=== PATIENT | female | born 1960 | race Caucasian/White ===

== ENCOUNTER → 2016-06-23 | Outpatient (CLI) | payer BC ==
--- NOTE | 2016-06-23 15:01 | MAMMOGRAPHY REPORT ---
BILATERAL DIGITAL DIAGNOSTIC MAMMOGRAM TOMOSYNTHESIS WITH CAD AND TARGETED RIGHT ULTRASOUND: 06/23/19 CLINICAL HISTORY: 55 year old woman presents for annual bilateral mammography and second close follo w-up of a probably benign mass in the medial anterior right breast. TECHNIQUE: Bilateral tomosynthesis in addition to standard 2D mammography was performed. Current angelo dy was also evaluated with a Computer Aided Detection (CAD) system. COMPARISON: Comparison is made to exams dated: 12/25/2015 ultrasound, 12/25/2015 mammogram, 06/25/2015 ultrasound, 06/25/2015 mammogram, and 06/21/2015 mammogram - [facility]. BREAST COMPOSITION: There are scattered areas of fibroglandular density in both breasts. FINDINGS: There is persistence of a well circumscribed lobulated 6.7 x 3.5 mm mass in the medial an terior right breast, best seen on the CC view (tomosynthesis slice 18/73). No associated architectu ral distortion or clustered microcalcification. No other obvious new mass, architectural distortion or suspicious microcalcifications are identified bilaterally. Targeted ultrasound was performed in the 4:00 right breast to reevaluate the probable complicated cy st seen on prior ultrasounds. There is a lobulated mixed echogenicity mass with numerous internal e choes, that appears slightly larger when comparing to the prior ultrasounds, although accurate measu rements are difficult to obtain given the elongated nature of the mass. It measures approximately 3 .0 x 4.3 x 3.9 mm, but this is likely under measured. There is also a newly visualized adjacent ova l hypoechoic solid-appearing mass in the 4:00 right breast, 1 cm from the nipple, measuring 3.0 x 2. 2 x 4.1 mm. Given the interval visual increase in size of the mixed solid and cystic mass in the ne wly visualized oval mass in the 4:00 right breast, 1 cm from the nipple, definitive characterization with tissue sampling is recommended of both masses, although they could represent complicated cysts or papillomas. IMPRESSION: ACR BI-RADS CATEGORY 4B: INTERMEDIATE SUSPICION FOR MALIGNANCY, TARGETED ULTRASOUND ACR BI-RADS CATEGORY 4B: INTERMEDIATE SUSPICION FOR MALIGNANCY 1. Ultrasound guided core needle biopsy 2 is recommended in the 4:00 right breast for a mixed katelyn d and cystic mass, that appears slightly increased in size, and an adjacent newly visualized hypoech oic solid mass. 2. No other significant interval change within the right breast. 3. Stable mammographic appearance of the left breast, without mammographic evidence of malignancy. Advise follow-up in 1 year. These results and recommendations were discussed with the patient at the time of the exam. She tent atively scheduled biopsies prior to leaving our department. Approximately 10% of breast cancers are not detected with mammography. A negative mammographic repor t should not delay biopsy if a clinically suggestive mass is present. Umm Leach M.D. ay/:06/23/2016 12:49:25 Spinning Mule Operator: Angela Tong, [facility] letter sent: Abnormal 4/5 BI-RADS Code: ACR BI-RADS Category 4B: Intermediate Suspicion For Malignancy Ultrasound BI-RADS: AC R BI-RADS Category 4B: Intermediate Suspicion For Malignancy
== END | disposition home or self-care (01) ==
LOC: C.MAMM 10:13
PROVIDERS: ATTEND Obstetrics & Gynecology
DX: N63 Unspecified lump in breast (principal)

== ENCOUNTER → 2016-07-02 | Outpatient (CLI) | payer BC ==
--- NOTE | 2016-07-02 11:02 | Discharge Instructions ---
Discharge Instructions Procedure Procedure Date: Jul 02, 2016. Reason for visit: Right Mass X 2. Discharge Discharge Date: Jul 02, 2016. Discharge Diagnosis: status post breast biopsy Instructions Activity Recommendations: No limitations, Additional Limitations (see below) Return to School/Work: no limitations Recommended Home Diet: No Limitations Provider Instructions: ACTIVITY RECOMMENDATIONS: * No lifting, pushing, pulling or exercising the affected side for three days. RETURN TO SCHOOL/WORK: * You may return to work/school after the procedure, but do not perform any strenuous activities for 24 to 48 hours. MEDICATIONS: * Tylenol (two 325 mg) every four to six hours if needed for mild pain (if not allergic to Tylenol). DIET: * Resume previous diet. SPECIAL CARE INSTRUCTIONS: * Keep biopsy site dry for 24 hours. May shower after 24 hours, but do not soak (bathe) incision. * May remove Tegaderm (plastic patch) tomorrow AFTER showering. * Leave the steri-strips on for one week. Allow the steri-strips to fall off by themselves. If not off after one week, you may remove them. You may place a Bandaid crosswise over the strips, if desired. * Apply ice 10 minutes on and 10 minutes off as needed. * Wear a bra at bedtime to sleep more comfortably for 2-3 days. * Your referring physician should have the results after approximately 5 to 7 business days. * Call for unusual bleeding, fever, drainage, etc or if you have any questions call during normal business hours or after hours call Dr Wilhelm, . FOLLOW UP VISIT: Follow-up with Referring Physician as scheduled. Dangelo Barroso Recommendations: Call your doctor if: * Temperature above 101 degrees * Pain not relieved by pain medicine ordered * There is increased drainage or redness from any incision * You have any unanswered questions or concerns. Your Doctors Instructions noted above were prepared by provider Tonie Wilhelm. Patient Signature Section: Patient Instructions Signature Page Sherry Chahal Patient (or Guardian) Signature/Date: I have read and understand the instructions given to me by my caregivers. Caregiver/RN/Doctor Signature/Date: The above-named patient and/or guardian has received patient instructions on this date. + Original Patient Signature Page (only) stays with chart. Please make copy for patient.
--- NOTE | 2016-07-02 12:46 | MAMMOGRAPHY REPORT ---
UNILATERAL RIGHT DIGITAL DIAGNOSTIC MAMMOGRAM: 07/02/2016 CLINICAL HISTORY: Status post ultrasound-guided biopsy of the right 4:00 breast mass. TECHNIQUE: Postprocedural right CC and ML views were obtained. COMPARISON: Comparison is made to exams dated: 06/23/2016 mammogram, 12/25/2015 mammogram, 06/25/2015 mammogram, 06/21/2015 mammogram, 06/19/2014 mammogram, and 06/16/2013 mammogram - [facility]. BREAST COMPOSITION: There are scattered areas of fibroglandular density in the right breast. FINDINGS: A new biopsy marker clip is seen at the site of the biopsied mass in the right lower inne r quadrant. The biopsy clip is located at the site of the oval mass seen on the recent diagnostic m ammograms dated 06/23/2016, indicating good correlation between the biopsied sonographic mass and the mammographic mass. No significant postbiopsy hematoma is seen. IMPRESSION: POST PROCEDURE IMAGING FOR MARKER PLACEMENT New biopsy marker clip status post ultrasound guided biopsy of the right 4:00 breast mass. Patholog y results are pending. Approximately 10% of breast cancers are not detected with mammography. A negative mammographic repor t should not delay biopsy if a clinically suggestive mass is present. Tonie Wilhelm M.D. ah/:07/02/2016 11:19:41 Washing Machine Loader: Sarah WESLEY(Dylon)(Sergo), [facility] BI-RADS Code: Post Procedure Imaging For Marker Placement
--- NOTE | 2016-07-02 12:46 | MAMMOGRAPHY REPORT ---
ULTRASOUND GUIDED BIOPSY RIGHT BREAST: 07/02/2016 CLINICAL HISTORY: Right 4:00 breast masses. PATIENT CONSENT: The procedure, risks and benefits were discussed with the patient and informed writ ten consent was obtained. A timeout was performed immediately prior to the procedure. PROCEDURE DESCRIPTION: Preprocedural ultrasound showed persistence of the complex mass versus complicated cyst in the right breast at 4:00, 1 cm from the nipple. The adjacent smaller mass was anechoic and appeared cystic o n today's exam, therefore, the decision was made to attempt aspiration. With ultrasound guidance, aseptic technique, and lidocaine as the local anesthetic (1% lidocaine to anesthetize the skin and 1% lidocaine with epinephrine to anesthetize the deeper tissues), the mass of concern in the right breast at 4:00 (larger complex mass) was sampled 4 times with a 14-gauge Gociety ieve biopsy needle. The mass decreased in size with each subsequent biopsy pass. Immediately there after, with ultrasound guidance, aseptic technique, and lidocaine as the local anesthetic, a metalli c localizer clip was placed at the biopsy site. Using ultrasound guidance, aseptic technique, and lidocaine as a local anesthetic, the smaller adjac ent anechoic mass was then aspirated with a 22-gauge needle and syringe. The mass aspirated to comp letion. Benign type fluid was aspirated and discarded. Direct pressure was applied to the site immediately post procedure and hemostasis was achieved. Pos tprocedure unilateral mammograms were performed to confirm placement of the clip in the expected loc ation of the breast mass. The patient tolerated the procedure without complication. She was given w ound care instructions. The specimens were sent to pathology for analysis. COMPARISON: Comparison is made to exams dated: 06/23/2016 ultrasound, 06/23/2016 mammogram, 12/25/2015 mammogram, 06/25/2015 mammogram, 06/19/2014 mammogram, and 06/16/2013 mammogram - [facility]. IMPRESSION: ULTRASOUND GUIDED BIOPSY 1. Ultrasound-guided core needle biopsy of the larger right 4:00 breast mass, with clip placement. The patient will receive pathology results from her ordering physician. 2. The smaller adjacent mass aspirated to completion, and is therefore consistent with a benign cys t. The aspirated fluid was discarded. Tonie Wilhelm M.D. /:07/02/2016 11:17:31 Potato Chip Frier: Sarah WESLEY(R)(M), [facility]
== END | disposition home or self-care (01) ==
LOC: C.MAMM 10:15
PROVIDERS: ATTEND Obstetrics & Gynecology
DX: N63 Unspecified lump in breast (principal); N60.11 Diffuse cystic mastopathy of right breast

== ENCOUNTER → 2016-09-10 | Outpatient (CLI) | payer BC | END | disposition home or self-care (01) | LOC: C.PAPS 10:41 | PROVIDERS: ATTEND Obstetrics & Gynecology | DX: Z01.419 Encounter for gynecological examination (general) (routine) without abnormal findings (principal) ==

== ENCOUNTER → 2016-12-31 | Outpatient (CLI) | payer BC ==
--- NOTE | 2016-12-31 13:43 | MAMMOGRAPHY REPORT ---
UNILATERAL RIGHT DIGITAL DIAGNOSTIC MAMMOGRAM TOMOSYNTHESIS WITH CAD: 12/31/2016 CLINICAL HISTORY: 56 year-old woman presents for follow-up in the right breast after a benign ultraso und-guided core biopsy and cyst aspiration. TECHNIQUE: Right breast tomosynthesis in addition to standard 2D mammography was performed. Current s elias was also evaluated with a Computer Aided Detection (CAD) system. COMPARISON: Comparison is made to exams dated: 07/02/2016 ultrasound biopsy, 07/02/2016 mammogram, 2016 ultrasound, 06/23/2016 mammogram, 12/25/2015 ultrasound, and 12/25/2015 mammogram - [facility]. BREAST COMPOSITION: There are scattered areas of fibroglandular density in the right breast. FINDINGS: There is stable nodularity in the subareolar right breast, previously documented to represe nt a benign cyst or focal duct ectasia. There is a stable ribbon shaped metallic biopsy marker in th e lower inner approximate 4:00 right breast, denoting the site of the prior benign ultrasound-guided core biopsy. There is no new or persistent mass, focal area of architectural distortion or suspiciou s microcalcifications within the right breast. Therefore recommend follow-up at time of next annual screening mammogram (due June 2017). IMPRESSION: ACR BI-RADS CATEGORY 2: BENIGN Stable post biopsy changes in the right breast, without any new or persistent mass or mammographic ev idence of malignancy. Return to annual mammogram screening schedule is recommended (due June 2017 ). The patient has been verbally notified of the results. Approximately 10% of breast cancers are not detected with mammography. A negative mammographic report should not delay biopsy if a clinically suggestive mass is present. Umm Leach M.D. ay/:12/31/2016 12:16:46 Clothes Model: Angela WESLEY(Dylon)(M), [facility] letter sent: Normal 1/2 BI-RADS Code: ACR BI-RADS Category 2: Benign
== END | disposition home or self-care (01) ==
LOC: C.MAMM 10:38
PROVIDERS: ATTEND Obstetrics & Gynecology
DX: N60.01 Solitary cyst of right breast (principal)

== ENCOUNTER → 2017-06-29 | Outpatient (CLI) | payer OTHER ==
--- NOTE | 2017-06-29 15:52 | MAMMOGRAPHY REPORT ---
BILATERAL DIGITAL SCREENING MAMMOGRAM TOMOSYNTHESIS WITH CAD: 06/29/2017 CLINICAL HISTORY: Routine screening. Patient has no complaints. TECHNIQUE: Breast tomosynthesis in addition to standard 2D mammography was performed. Current study was also evaluated with a Computer Aided Detection (CAD) system. COMPARISON: Comparison is made to exams dated: 12/31/2016 mammogram, 12/25/2015 mammogram, 06/21/2015 ma mmogram, 06/19/2014 mammogram, 06/16/2013 mammogram, and 06/15/2012 mammogram - [facility]. BREAST COMPOSITION: There are scattered areas of fibroglandular density in both breasts. FINDINGS: No suspicious masses, calcifications, or areas of architectural distortion are noted in ei ther breast. There has been no significant interval change compared to prior exams. A biopsy marker clip is again noted within the right lower inner quadrant. IMPRESSION: ACR BI-RADS CATEGORY 2: BENIGN There is no mammographic evidence of malignancy. A 1 year screening mammogram is recommended. The pa tient will receive written notification of the results. Approximately 10% of breast cancers are not detected with mammography. A negative mammographic report should not delay biopsy if a clinically suggestive mass is present. Tonie Wilhelm M.D. /:06/29/2017 12:43:42 Ore Washer: Janee LOMBARDI)(Sergo), [facility] letter sent: Normal 1/2 BI-RADS Code: ACR BI-RADS Category 2: Benign
== END | disposition home or self-care (01) ==
LOC: C.MAMM 09:02
PROVIDERS: ATTEND Obstetrics & Gynecology
DX: Z12.31 Encounter for screening mammogram for malignant neoplasm of breast (principal)

== ENCOUNTER → 2017-10-14 | Outpatient (CLI) | payer OTHER | END | disposition home or self-care (01) | LOC: C.PAPS 10:49 | PROVIDERS: ATTEND Obstetrics & Gynecology | DX: Z12.4 Encounter for screening for malignant neoplasm of cervix (principal) ==